=== PATIENT | male | born 1985 | race Caucasian/White ===

== ENCOUNTER 2016-06-24 00:37 | Emergency (ER) | payer SELFPAY ==
[2016-06-24 00:45] VITALS: BP 129/71
[2016-06-24] MEDS ORDERED: Alum Hydrox/Mag Hydrox/Simeth 30 ML, Lidocaine 2% 15 ML PO ONE ×2 (01:00)
--- NOTE | 2016-06-24 01:00 | EDM.PDOC ---
ED HPI GENERAL MEDICAL PROBLEM - General Chief Complaint: Chest Pain Stated Complaint: LEFT ARM PAIN AND HEART BURN Time Seen by Provider: 06/24/16 00:50 - History of Present Illness INITIAL COMMENTS - FREE TEXT/NARRATIVE: 30-year-old male presents emergency room with heartburn and chest pain. Patient's been having heartburn getting worse over the last week or so. He has some improvement with Tums. This evening about an hour ago he developed left upper chest discomfort somewhat sharp and he noticed muscle twitching in that area. Patient has no family history of coronary artery disease he does smoke at least tried to quit. Prior to the onset of this discomfort he was moving heavy stuff in the garage. His pain is not associated with any shortness of breath nausea or vomiting the pain does not radiate anywhere other than stated above. Been taking Aleve and aspirin for backache. Left Upper Chest Pain Score (Numeric/FACES): 8 - Related Data Allergies Allergy/AdvReac Type Severity Reaction Status Date / Time bee pollen Allergy Rash Verified 06/24/16 00:46 oxycodone [From OxyContin] Allergy Hives Verified 06/24/16 00:46 pineapple Allergy Swollen Verified 06/24/16 00:46 Tongue sulfer Allergy Airway Uncoded 06/24/16 00:46 Tightness Home Meds: Home Meds Omeprazole/Sodium Bicarbonate [Zegerid 40 MG] 40 mg PO DAILY #30 packet [Rx] Sucralfate [Carafate] 1 gm PO QIDACANDBED #30 tablet 06/24/16 [Rx] Social & Family History - Tobacco Use Smoking Status *Q: Current Every Day Smoker Years of Tobacco use: 16 Packs/Tins Daily: 1 - Caffeine Use Caffeine Use: Reports: Coffee, Energy drinks, Soda Other Caffeine Use: coffee daily, energy drinks 2 x/week - Recreational Drug Use Recreational Drug Use: No ED ROS GENERAL - Review of Systems Review Of Systems: See Below Constitutional: Reports: no symptoms HEENT: Reports: No symptoms Respiratory: Reports: Pleuritic Chest Pain. Denies: Shortness of Breath, Cough , Sputum Cardiovascular: Reports: Chest pain. Denies: Dyspnea on exertion, Edema, Lightheadedness, Palpitations, Syncope GI/Abdominal: Reports: No symptoms : Reports: no symptoms Neurological: Reports: No Symptoms ED EXAM, GENERAL - Physical Exam Exam: See Below Exam Limited By: No limitations General Appearance: alert, no apparent distress Ears: normal external exam, normal canal, hearing grossly normal, normal TMs Nose: normal inspection Throat/Mouth: Normal inspection, Normal lips, Normal teeth, Normal gums, Normal oropharynx, Normal voice, No airway compromise Head: atraumatic, normocephalic Respiratory/Chest: no respiratory distress, lungs clear, normal breath sounds, other (Is mild palpatory chest wall discomfort in the left upper chest) Cardiovascular: regular rate, rhythm, no edema, no murmur GI/Abdominal: normal bowel sounds, soft, other (Patient has significant epigastric discomfort with palpation otherwise no rebound guarding or rigidity) Back Exam: normal inspection, other (Has some vague discomfort in the right low back). No: CVA tenderness (L), CVA tenderness (R) Extremities: normal inspection, no pedal edema EKG INTERPRETATION EKG Date: 06/24/16 Rhythm: NSR [place]: normal P-wave: present QRS: normal ST-T: normal QT: normal Comparison: NA - no prior EKG EKG Interpretation Comments: Chest at this show some baseline wander and poor QRS complexes in aVL Course - Vital Signs Last Recorded V/S: Last Vital Signs Temp 36.6 C 06/24/16 00:43 Pulse 71 06/24/16 00:43 Resp 16 06/24/16 00:43 BP 129/71 06/24/16 00:43 Pulse Ox 97 06/24/16 00:43 - Orders/Labs/Meds Orders: Active Orders 24 hr Category Date Time Status EKG Documentation Completion [RC] STAT Care 06/24/16 01:01 Active Chest 1V Frontal [CR] Stat Exams 06/24/16 01:00 Taken Labs: Laboratory Tests 06/24/16 06/24/16 06/24/16 Range/Units 01:09 01:09 01:09 WBC 10.16 H (4.23-9.07) K/mm3 RBC 5.21 (4.63-6.08) M/mm3 Hgb 15.7 (13.7-17.5) gm/L Hct 45.3 (40.1-51.0) % MCV 86.9 (79.0-92.2) fl MCH 30.1 (25.7-32.2) pg MCHC 34.7 (32.2-35.5) g/dl RDW Std Deviation 46.7 H (35.1-43.9) fL Plt Count 258 (163-337) K/mm3 MPV 9.9 (9.4-12.3) fl Neutrophils % (Manual) 44 (40-60) % Band Neutrophils % 1 (0-10) % Lymphocytes % (Manual) 38 (20-40) % Atypical Lymphs % 0 % Monocytes % (Manual) 11 H (2-10) % Eosinophils % (Manual) 6 (0.8-7.0) % Basophils % (Manual) 0 L (0.2-1.2) Platelet Estimate Adequate RBC Morph Comment Normal PT 10.1 (8.0-13.0) SECONDS INR 0.93 APTT 29 (22-36) SECONDS Sodium 139 (136-145) mEq/L Potassium 3.8 (3.5-5.1) mEq/L Chloride 104 (98-107) mEq/L Carbon Dioxide 25 (21-32) mEq/L Anion Gap 13.8 (5-15) BUN 18 (7-18) mg/dL Creatinine 1.0 (0.7-1.3) mg/dL Est Cr Clr Drug Dosing 117.48 mL/min Estimated GFR (MDRD) > 60 (>60) mL/min BUN/Creatinine Ratio 18.0 (14-18) Glucose 95 (74-106) mg/dL Calcium 9.1 (8.5-10.1) mg/dL Magnesium 2.1 (1.8-2.4) mg/dl Total Bilirubin 0.3 (0.2-1.0) mg/dL AST 23 (15-37) U/L ALT 46 (16-63) U/L Alkaline Phosphatase 116 (46-116) U/L Troponin I < 0.017 (0.00-0.056) ng/mL Total Protein 7.3 (6.4-8.2) g/dl Albumin 4.3 (3.4-5.0) g/dl Globulin 3.0 gm/dL Albumin/Globulin Ratio 1.4 (1-2) Meds: Medications Discontinued Medications Generic Name Dose Route Start Last Admin Trade Name Freq PRN Reason Stop Dose Admin Al Hydroxide/Mg Hydroxide 30 0 ml 06/24/16 01:00 06/24/16 01:11 ml/ Lidocaine HCl 15 ml PO 06/24/16 01:01 45 ml ONETIME ONE Administration Pantoprazole Sodium 40 mg/ 100 mls @ 200 mls/hr 06/24/16 01:39 06/24/16 01:47 Sodium Chloride IV 06/24/16 02:08 200 mls/hr ONETIME ONE Administration Sucralfate 1 gm 06/24/16 02:38 06/24/16 02:42 Carafate PO 06/24/16 02:39 Not Given QIDACANDBED ONE Sucralfate 1 gm 06/24/16 02:44 06/24/16 02:44 Carafate PO 06/24/16 02:45 1 gm Q6H ONE Administration Sucralfate Confirm 06/24/16 02:42 Carafate Administered 06/24/16 02:43 Dose 1 gm .ROUTE .[facility] ONE - Re-Assessments/Exams Free Text/Narrative Re-Assessment/Exam: 06/24/16 01:39 Patient had significant improvement with the GI cocktail. We'll give protonix. Chest x-ray one view normal. 06/24/16 02:47 Patient is much better much less abdominal discomfort on repeat exam he we'll get a dose of Carafate and then discharged home. Departure - Departure Time of Disposition: 02:47 Disposition: Home, Self-Care 01 Clinical Impression: Dyspepsia, GERD (gastroesophageal reflux disease) Prescriptions: Omeprazole/Sodium Bicarbonate [Zegerid 40 MG] 40 mg PO DAILY #30 packet Sucralfate [Carafate] 1 gm PO QIDACANDBED #30 tablet Forms: ED Department Discharge Additional Instructions: Return to the emergency room with any questions or problems. Followup in the hospital clinic in one week for recheck schedule appointment tomorrow. [phone]. He then started on 2 medications the first one is zegrid. Take one daily, wall on the Carafate take it at least an hour before your evening meal. And then after the Carafate take it 30-60 minutes before your evening meal. There are 2 refills associated with this. The second medication is Carafate it's in a tablet form take one 4 times daily at the beginning of each meal breakfast lunch and supper and before bed you'll take this for a week. Discontinue the use of ibuprofen or naproxen. - My Orders Last 24 Hours: My Active Orders 06/24/16 01:00 Chest 1V Frontal [CR] Stat 06/24/16 01:01 EKG Documentation Completion [RC] STAT - Assessment/Plan Last 24 Hours: My Active Orders 06/24/16 01:00 Chest 1V Frontal [CR] Stat 06/24/16 01:01 EKG Documentation Completion [RC] STAT
[2016-06-24] MEDS ORDERED: Pantoprazole 40 MG in Sodium Chloride 0.9% 100 ML IV ONE (01:39)
[2016-06-24] MEDS ORDERED: Sucralfate 1 GM Tab PO ONE (02:38)
[2016-06-24] MEDS ORDERED: Sucralfate Suspension 1 GM/10 ML Cup ONE (02:42)
[2016-06-24] MEDS ORDERED: Sucralfate Suspension 1 GM/10 ML Cup PO ONE (02:44)
--- NOTE | 2016-06-24 07:03 | CR ---
Chest: Frontal view of the chest was obtained. Comparison: No previous chest x-ray. Heart size and mediastinum are normal. Lungs are clear. Bony structures are grossly intact. Impression: 1. Nothing acute is identified on frontal chest x-ray. Diagnostic code #1
== END 2016-06-24 03:00 | disposition home or self-care (01) ==
LOC: JD.ED 00:37
DX: K21.9 Gastro-esophageal reflux disease without esophagitis (principal); F17.200 Nicotine dependence, unspecified, uncomplicated; Z91.030 Bee allergy status; Z88.6 Allergy status to analgesic agent; Z91.018 Allergy to other foods; Z91.09 Other allergy status, other than to drugs and biological substances; Z79.899 Other long term (current) drug therapy
CPT/HCPCS: 36415; 71010; 80053; 83735; 84484; 85025; 85610; 85730; 93005; 96365; 99285; A9270; C9113; J7030; 99284

== ENCOUNTER 2018-07-21 20:44 | Emergency (ER) | payer MEDICAID ==
[2018-07-21 21:03] VITALS: BP 128/78
--- NOTE | 2018-07-21 21:20 | EDM.PDOC ---
ED HPI GENERAL MEDICAL PROBLEM - General Chief Complaint: ENT Problem Stated Complaint: SORE THROAT Time Seen by Provider: 07/21/18 21:06 Source of Information: Reports: Patient, RN Notes Reviewed - History of Present Illness INITIAL COMMENTS - FREE TEXT/NARRATIVE: 32 y/o male presents to ER with cc sore throat for the past 3 weeks. He reports the pain is better when he takes Tylenol or Ibuprofen. He denies fever or chills. He states nothing makes it better or worse. He does not have a PCP. Onset Date: 07/05/18 Onset Time: 09:00 Duration: Getting Worse, Intermittent Location: Reports: Other (sore throat) Quality: Reports: Ache Severity: Mild Improves with: Reports: Medication Worsens with: Reports: Eating Associated Symptoms: Reports: Headaches. Denies: Cough, Fever/Chills, Nausea/ Vomiting Throat Pain Score (Numeric/FACES): 6 - Related Data Allergies Allergy/AdvReac Type Severity Reaction Status Date / Time bee pollen Allergy Rash Verified 07/21/18 21:30 oxycodone [From OxyContin] Allergy Hives Verified 07/21/18 21:30 pineapple Allergy Swollen Verified 07/21/18 21:30 Tongue sulfer Allergy Airway Uncoded 07/21/18 21:30 Tightness Home Meds: Home Meds Omeprazole/Sodium Bicarbonate [Zegerid 40 MG] 40 mg PO DAILY #30 packet [Rx] Sucralfate [Carafate] 1 gm PO QIDACANDBED #30 tablet 06/24/16 [Rx] Social & Family History - Caffeine Use Caffeine Use: Reports: Coffee, Energy Drinks, Soda Other Caffeine Use: coffee daily, energy drinks 2 x/week ED ROS ENT - Review of Systems Review Of Systems: See Below Constitutional: Denies: Fever, Chills HEENT: Reports: Throat Pain Respiratory: Denies: Shortness of Breath Cardiovascular: Denies: Chest Pain Endocrine: Reports: No Symptoms GI/Abdominal: Reports: No Symptoms : Reports: No Symptoms, Urinary Retention Skin: Reports: No Symptoms Neurological: Reports: No Symptoms Psychiatric: Reports: No Symptoms Hematologic/Lymphatic: Reports: No Symptoms Immunologic: Reports: No Symptoms ED EXAM, ENT - Physical Exam Exam: See Below Exam Limited By: No Limitations General Appearance: Alert, WD/WN, No Apparent Distress Ears: Normal External Exam, Normal Canal, Hearing Grossly Normal, Normal TMs Nose: Normal Inspection, Normal Mucousa, No Blood Mouth/Throat: Normal Inspection, Normal Gums, Normal Lips, Normal Oropharynx, Normal Teeth Neck: Normal Inspection, Supple, Non-Tender, Full Range of Motion Respiratory/Chest: No Respiratory Distress, Lungs Clear, Normal Breath Sounds, No Accessory Muscle Use, Chest Non-Tender Cardiovascular: Normal Peripheral Pulses, Regular Rate, Rhythm, No Edema, No Gallop, No JVD, No Murmur, No Rub Neurological: Alert, Oriented, CN II-XII Intact, Normal Cognition, Normal Gait Psychiatric: Normal Affect, Normal Mood Skin: Warm, Dry, Intact, Normal Color, No Rash Lymphatic: No Adenopathy Course - Vital Signs Last Recorded V/S: Last Vital Signs Temp 98.7 F 07/21/18 20:59 Pulse 87 07/21/18 20:59 Resp 18 07/21/18 20:59 BP 128/78 07/21/18 20:59 Pulse Ox 97 07/21/18 20:59 - Orders/Labs/Meds Orders: Active Orders 24 hr Category Date Time Status CULTURE STREP A CONFIRMATION [RM] Stat Lab 07/21/18 21:07 Results STREP SCRN A RAPID W CULT CONF [] Stat Lab 07/21/18 21:07 Results - Re-Assessments/Exams Free Text/Narrative Re-Assessment/Exam: 07/21/18 22:22 32 y/o male presents to ER with cc sore throat for the past 3 weeks. His strep screen was negative. I will discharge home with instructions to take Tylenol or Ibuprofen for pain, to use salt water gargles. Instructed to follow up with his PCP. Instructed to return to the ER for any new or acute worsening symptoms. He verbalized understanding and is comfortable with plan for discharge. Departure - Departure Time of Disposition: 22:24 Disposition: Home, Self-Care 01 Condition: Good Clinical Impression: Pharyngitis - Discharge Information Instructions: Viral Respiratory Infection, [id number], Pharyngitis, Easy-to- Read Referrals: PCP,None [Primary Care Provider] - Forms: ED Department Discharge Additional Instructions: You have been diagnosis with viral pharyngitis. Take Tylenol or Ibuprofen for pain. Follow up with your PCP. Return to the ER for any new or acute worsening symptoms.
== END 2018-07-21 22:30 | disposition home or self-care (01) ==
LOC: JD.ED 20:44
DX: J02.9 Acute pharyngitis, unspecified (principal); Z91.018 Allergy to other foods; Z91.030 Bee allergy status; Z88.8 Allergy status to other drugs, medicaments and biological substances
CPT/HCPCS: 87081; 87430; 99282; 99283

== ENCOUNTER 2018-12-11 01:14 | Emergency (ER) | payer SELFPAY ==
[2018-12-11 01:23] VITALS: BP 117/77; PULSE 86
[2018-12-11] MEDS ORDERED: FLU Vacc QS2019-20(6MOS+)/PF 60 MCG/0.5 ML SYRINGE IM ONE (01:45)
[2018-12-11] MEDS ORDERED: Iopamidol 755 Mg/ML 100 ML Bottle IVPUSH ONE (01:51)
--- NOTE | 2018-12-11 01:51 | EDM.PDOC ---
ED HPI GENERAL MEDICAL PROBLEM - General Chief Complaint: Chest Pain Stated Complaint: chest pain Time Seen by Provider: 12/11/18 01:24 Source of Information: Reports: Patient, Family () History Limitations: Reports: No Limitations - History of Present Illness INITIAL COMMENTS - FREE TEXT/NARRATIVE: Mr. patton is a pleasant 33-year-old man with a past medical history significant only for GERD, who states that he developed left upper anterior chest pain, sharp/stabbing, and possibly burning in character, around 01:10 this morning, just after smoking a cigarette. The sensation is a pain, not a discomfort. It is intermittent and shooting. It is not present if he remains perfectly still, but is present with most movements, including turning his head, especially to the left, or with breathing. At about the same time, the patient states that he developed slight shortness of breath, any felt clammy. No associated nausea or sense of impending doom. The patient also reports having a headache felt across the top of his head, bilaterally, extending to the neck. He also reports severe left posterolateral neck pain. He denies tinnitus. The patient states that he has its frequent similar headaches and neck pain, and is usually able to resolve them by "cracking" his neck, however, his symptoms did not improve today after he entered to crack his neck several times. The patient also reports a tingling and numbness sensation to his entire left upper extremity, extending to the wrist. He states that his symptoms are worse tonight than usual. The patient does not have a PCP. Left Chest Pain Score (Numeric/FACES): 6 - Related Data Allergies Allergy/AdvReac Type Severity Reaction Status Date / Time bee pollen Allergy Rash Verified 12/11/18 01:23 oxycodone [From OxyContin] Allergy Hives Verified 12/11/18 01:23 pineapple Allergy Swollen Verified 12/11/18 01:23 Tongue sulfer Allergy Airway Uncoded 12/11/18 01:23 Tightness Home Meds: Home Meds Esomeprazole Magnesium [Nexium] 20 mg PO DAILY 12/11/18 [History] Orphenadrine [Norflex] 1 tab PO Q12H PRN #14 tab.er 12/11/18 [Rx] Ranitidine HCl [Ranitidine] 150 mg PO BID 12/11/18 [History] predniSONE [Prednisone] 1 tab PO QPM #5 tablet 12/11/18 [Rx] Past Medical History HEENT History: Reports: Impaired Vision Gastrointestinal History: Reports: GERD Psychiatric History: Reports: Anxiety (untreated), Depression (untreated) - Infectious Disease History Infectious Disease History: Reports: Chicken Pox, Measles, Mumps - Past Surgical History HEENT Surgical History: Reports: Naso-Sinus Surgery (rhinoplasty), Oral Surgery (2 wisdom teeth extracted) Musculoskeletal Surgical History: Reports: Shoulder Surgery (left, arthroscopic) , Other (See Below) (Left knee Synvisc injection) Social & Family History - Family History Family Medical History: Noncontributory - Tobacco Use Smoking Status *Q: Current Every Day Smoker Years of Tobacco use: 20 Packs/Tins Daily: 1 - Caffeine Use Caffeine Use: Reports: Coffee, Energy Drinks, Soda Other Caffeine Use: coffee daily, energy drinks 2 x/week - Alcohol Use Alcohol Use History: Yes Alcohol Use Frequency: Socially - Recreational Drug Use Recreational Drug Use: Yes Drug Use in Last 12 Months: No Recreational Drug Type: Reports: Marijuana/Hashish (last smoked at 18 years old) - Living Situation & Occupation Living situation: Reports: , with Spouse 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 ED EXAM, GENERAL - Physical Exam Exam: See Below Exam Limited By: No Limitations General Appearance: Alert, WD/WN, No Apparent Distress Eye Exam: Bilateral Eye: EOMI, Normal Inspection Ears: Normal External Exam, Normal Canal, Hearing Grossly Normal, Normal TMs Nose: Normal Inspection, Normal Mucosa, No Blood Throat/Mouth: Normal Inspection, Normal Lips, Normal Teeth, Normal Gums, Normal Oropharynx, Normal Voice, No Airway Compromise Head: Atraumatic, Normocephalic, Other (Scalp tenderness) Neck: Supple, Full Range of Motion (But pain induced in the patient's left neck and left anterior chest with turning his head to the left. No pain induced with turning his head to the right, or with flexing or extending his neck.), Tender Lateral (Substantial pain to palpation of the posterior lateral aspect of the neck), Tender Midline (relatively mild), Other (No carotid bruits). No: Lymphadenopathy (L), Lymphadenopathy (R) Respiratory/Chest: No Respiratory Distress, Lungs Clear, Normal Breath Sounds, No Accessory Muscle Use, Other (significant tenderness to palpation of the left pectoralis muscle) Cardiovascular: Normal Peripheral Pulses, Regular Rate, Rhythm, No Edema, No Gallop, No JVD, No Murmur, No Rub Peripheral Pulses: 4+: Radial (L), Radial (R) GI/Abdominal: Normal Bowel Sounds, Soft, Non-Tender, No Organomegaly, No Distention, No Abnormal Bruit, No Mass (Male) Exam: Deferred Rectal (Males) Exam: Deferred Back Exam: Normal Inspection, Full Range of Motion, NT Extremities: Normal Inspection, Normal Range of Motion, No Pedal Edema, Normal Capillary Refill Neurological: Alert, Oriented, CN II-XII Intact, Normal Cognition, Sensory/ Motor Deficit (paresthesia to the left upper extremity, shoulder to wrist) Psychiatric: Normal Affect Skin Exam: Warm, Dry, Intact, Normal Color, No Rash EKG INTERPRETATION EKG Date: 12/11/18 Time: 01:52 Rhythm: NSR Rate (Beats/Min): 71 [place]: Normal P-Wave: Present (No atrial enlargement or AV block) QRS: Normal (Normal transition) ST-T: Normal (J-point elevation in V2 only. No T-wave inversions or other ischemic changes.) QT: Normal Comparison: No Change (06/24/2016) Course - Vital Signs Last Recorded V/S: Last Vital Signs Temp 36.7 C 12/11/18 01:20 Pulse 86 12/11/18 01:20 Resp 19 12/11/18 01:20 BP 117/77 12/11/18 01:20 Pulse Ox 97 12/11/18 01:20 - Orders/Labs/Meds Orders: Active Orders 24 hr Category Date Time Status EKG Documentation Completion [RC] STAT Care 12/11/18 01:48 Active Influenza Vaccine Charge [RC] .DISCHARGE Care 12/11/18 01:30 Active Ang Head [CT] Stat Exams 12/11/18 01:46 Taken CTA Neck W & W/O Contrast [Ang Neck] [CT] Stat Exams 12/11/18 01:46 Taken Chest 1V Frontal [CR] Stat Exams 12/11/18 01:48 Taken Sodium Chloride 0.9% [Normal Saline] 1,000 ml Med 12/11/18 02:00 Active IV ASDIRECTED Sodium Chloride 0.9% [Normal Saline] 100 ml Med 12/11/18 02:00 Active IV ASDIRECTED Medication Orders Sodium Chloride (Normal Saline) 1,000 mls @ 150 mls/hr IV ASDIRECTED ELIANE Last Admin: 12/11/18 01:57 Dose: 150 mls/hr Sodium Chloride (Normal Saline) 100 mls @ 5 mls/sec IV ASDIRECTED ELIANE Last Admin: 12/11/18 02:14 Dose: 5 mls/sec Labs: Laboratory Tests 12/11/18 12/11/18 Range/Units 01:58 02:25 WBC 8.84 (4.23-9.07) K/mm3 RBC 5.23 (4.63-6.08) M/mm3 Hgb 15.8 (13.7-17.5) gm/dl Hct 46.3 (40.1-51.0) % MCV 88.5 (79.0-92.2) fl MCH 30.2 (25.7-32.2) pg MCHC 34.1 (32.2-35.5) g/dl RDW Std Deviation 48.3 H (35.1-43.9) fL Plt Count 298 (163-337) K/mm3 MPV 9.7 (9.4-12.3) fl Neut % (Auto) 43.7 (34.0-67.9) % Lymph % (Auto) 40.6 (21.8-53.1) % [place] % (Auto) 8.5 (5.3-12.2) % Eos % (Auto) 5.9 (0.8-7.0) Baso % (Auto) 1.1 (0.1-1.2) % Neut # (Auto) 3.86 (1.78-5.38) K/mm3 Lymph # (Auto) 3.59 H (1.32-3.57) K/mm3 [place] # (Auto) 0.75 (0.30-0.82) K/mm3 Eos # (Auto) 0.52 (0.04-0.54) K/mm3 Baso # (Auto) 0.10 H (0.01-0.08) K/mm3 Sodium 139 (136-145) mEq/L Potassium 3.4 L (3.5-5.1) mEq/L Chloride 104 (98-107) mEq/L Carbon Dioxide 26 (21-32) mEq/L Anion Gap 12.4 (5-15) BUN 10 (7-18) mg/dL Creatinine 1.0 (0.7-1.3) mg/dL Est Cr Clr Drug Dosing 117.63 mL/min Estimated GFR (MDRD) > 60 (>60) mL/min BUN/Creatinine Ratio 10.0 L (14-18) Glucose 107 H (74-106) mg/dL Calcium 8.3 L (8.5-10.1) mg/dL Total Bilirubin 0.1 L (0.2-1.0) mg/dL AST 17 (15-37) U/L ALT 36 (16-63) U/L Alkaline Phosphatase 135 H (46-116) U/L Troponin I < 0.017 (0.00-0.056) ng/mL Total Protein 6.3 L (6.4-8.2) g/dl Albumin 3.2 L (3.4-5.0) g/dl Globulin 3.1 gm/dL Albumin/Globulin Ratio 1.0 (1-2) Meds: Medications Generic Name Dose Route Start Last Admin Trade Name Freq PRN Reason Stop Dose Admin Sodium Chloride 1,000 mls @ 150 mls/hr 12/11/18 02:00 12/11/18 01:57 Normal Saline IV 150 mls/hr ASDIRECTED ELIANE Administration Sodium Chloride 100 mls @ 5 mls/sec 12/11/18 02:00 12/11/18 02:14 Normal Saline IV 5 mls/sec ASDIRECTED ELIANE Administration Discontinued Medications Generic Name Dose Route Start Last Admin Trade Name Freq PRN Reason Stop Dose Admin Influenza Virus Vaccine 60 mcg 12/11/18 01:45 12/11/18 02:56 Fluzone Quad [id number] Syringe IM 12/11/18 01:46 60 mcg .ONCE ONE Administration Iopamidol 100 ml 12/11/18 01:51 12/11/18 02:14 Isovue-370 (76%) IVPUSH 12/11/18 01:52 100 ml ONETIME ONE Administration Orphenadrine Citrate 100 mg 12/11/18 03:18 Norflex PO 12/11/18 03:19 ONETIME STA - Re-Assessments/Exams Free Text/Narrative Re-Assessment/Exam: 12/11/18 01:49 The patient's history and physical examination are most consistent with left cervical radiculopathy, however, cervical radiculopathy should not really cause a headache or scalp tenderness. I think there is a remote possibility that the patient is suffering from cervical cephalic dissection, especially since his symptoms began after he tried to "crack" his neck. I have therefore ordered angiograms of the head and neck. In addition, I have ordered some blood work, a chest x-ray, and an ECG. 12/11/18 02:57 Portable chest radiograph appears to be grossly normal. The cardiac silhouette is within normal limits. No pulmonary vascular congestion. No pleural effusions seen on this AP view. No focal infiltrate. No pneumothorax. Formal read per the Radiologist pending. 12/11/18 03:13 The patient's CBC is unremarkable. His CMP is remarkable for potassium slightly low at 3.4 and a blood glucose mildly elevated at 107. His calcium is mildly depressed at 8.3 with an albumin of 3.2. His alkaline phosphatase is mildly elevated either 135. The remainder of his CMP is unremarkable. His troponin is undetectably low. The patient's calcium corrects to 8.9. 12/11/18 03:19 CT angiogram of the neck is read by Vasyl as: No acute findings. No evidence for vascular dissection or aneurysm Addendum to the CT report is read as "The patient has a dominant left vertebral artery is a small right vertebral artery. No evidence for dissection" [sic] 12/11/18 03:23 CT angiogram of the head is read by Vasyl as "No acute findings." 12/11/18 03:29 Test results discussed with the patient and his . As above, the patient appears to have left cervical radiculopathy. I have ordered Norflex, and I discussed the option of him taking either an NSAID or prednisone as an anti- inflammatory. The patient would prefer prednisone; I will prescribe a 5 day course. I will also refer the patient to the clinic for follow-up, that could include an MRI of the neck for definitive diagnosis. Departure - Departure Time of Disposition: 03:32 Disposition: Home, Self-Care 01 Condition: Good Clinical Impression: Left cervical radiculopathy - Discharge Information *PRESCRIPTION DRUG MONITORING PROGRAM REVIEWED*: Not Applicable *COPY OF PRESCRIPTION DRUG MONITORING REPORT IN PATIENT EYAD: Not Applicable Referrals: Thad Mitchell MD [Physician] - Forms: ED Department Discharge Additional Instructions: You were seen in the emergency room after developing a headache, left neck pain , left chest pain, and worsening chronic tingling and numbness to your left arm. Workup in the ER included blood work, a chest x-ray, CT angiograms of your head and neck, and an ECG. Your entire workup was unremarkable. You do not have a cervicocephalic dissection. You have not suffered a heart attack. Based on your history, physical examination, and ER tests, you are most likely suffering from left cervical radiculopathy = irritation/inflammation of the nerves leaving the left side of your neck. As discussed, the definitive diagnosis of cervical radiculopathy is made by an MRI of your neck, a test that cannot be done from the emergency room. Your diagnosis is a clinical diagnosis. You have been started on the steroid prednisone and the muscle relaxant Norflex. Prescriptions for prednisone and Norflex have been sent to the [facility], located just south and across the [address] from [facility]. Take one tablet of prednisone every evening, starting this evening, Tuesday, , as prescribed. Take one tablet of Norflex every 12 hours, starting this evening, Tuesday, 2018, as prescribed. It is very important that if you take prednisone, you do not also take an NSAID , such as aspirin, ibuprofen (Advil, Motrin), or naproxen (Aleve). You may continue to take your heartburn medicines. Follow-up with Dr. Thad Kirkland, or one of the other providers in the clinic, at the next available appointment, for further evaluation. If any other problems, please do not hesitate to return to the ER. - My Orders Last 24 Hours: My Active Orders 12/11/18 01:30 Influenza Vaccine Charge [RC] .DISCHARGE 12/11/18 01:46 Ang Head [CT] Stat CTA Neck W & W/O Contrast [Ang Neck] [CT] Stat 12/11/18 01:48 EKG Documentation Completion [RC] STAT Chest 1V Frontal [CR] Stat 12/11/18 02:00 Sodium Chloride 0.9% [Normal Saline] 1,000 ml IV ASDIRECTED Sodium Chloride 0.9% [Normal Saline] 100 ml IV ASDIRECTED - Assessment/Plan Last 24 Hours: My Active Orders 12/11/18 01:30 Influenza Vaccine Charge [RC] .DISCHARGE 12/11/18 01:46 Ang Head [CT] Stat CTA Neck W & W/O Contrast [Ang Neck] [CT] Stat 12/11/18 01:48 EKG Documentation Completion [RC] STAT Chest 1V Frontal [CR] Stat 12/11/18 02:00 Sodium Chloride 0.9% [Normal Saline] 1,000 ml IV ASDIRECTED Sodium Chloride 0.9% [Normal Saline] 100 ml IV ASDIRECTED
[2018-12-11] MEDS ORDERED: Sodium Chloride 0.9% 1,000 ML IV SCH (02:00)
[2018-12-11] MEDS ORDERED: Sodium Chloride 0.9% 100 ML IV SCH (02:00)
[2018-12-11] MEDS ORDERED: Ondansetron 4 MG/2 ML SDV IVPUSH ONE (02:00)
[2018-12-11] MEDS ORDERED: Orphenadrine 100 MG Tab.ER PO STA (03:18)
[2018-12-11] MEDS ORDERED: predniSONE 20 MG Tab PO STA (03:29)
--- NOTE | 2018-12-11 06:43 | CT ---
CT angiogram of neck Technique: Multiple axial sections through the neck were obtained. Intravenous contrast was utilized. Multiple MIP images were then obtained. Findings: Small right vertebral artery is seen with dominant left vertebral artery which is a normal variant. Common carotid arteries are patent. Carotids bulbs show no focal stenosis. Internal carotid arteries appear within normal limits. No dissection or focal stenosis is seen. No occlusion is seen. Impression: 1. No abnormality is identified on CT angiogram of neck. Diagnostic code #1 I agree with preliminary report from [facility], finalized on 12/11/18, 4:16 AM Central Time
--- NOTE | 2018-12-11 06:43 | CT ---
CT angiogram of brain Technique: Multiple axial sections were obtained through the brain. Intravenous contrast was utilized. Multiple MIP images were obtained. Findings: Dominant left vertebral artery is seen as compared to the right vertebral artery. Basilar artery is patent. Carotid siphon appears normal. Middle, anterior and posterior cerebral arteries are within normal limits. No focal stenosis is seen. No gross aneurysm is identified. Impression: 1. No abnormality is appreciated on CT angiogram study centered to the [place]. Diagnostic code #1 I agree with preliminary report from [facility], finalized on 12/11/18, 4:18 AM Central Time
--- NOTE | 2018-12-11 06:43 | CR ---
Chest: Portable view of the chest was obtained. Comparison: Prior chest x-ray of 06/24/16. Heart size and mediastinum are normal. Lungs are clear. Bony structures are grossly intact. Impression: 1. Nothing acute is appreciated on portable chest x-ray. Diagnostic code #1
== END 2018-12-11 03:54 | disposition home or self-care (01) ==
LOC: JD.ED 01:14
DX: M54.12 Radiculopathy, cervical region (principal); K21.9 Gastro-esophageal reflux disease without esophagitis; F17.210 Nicotine dependence, cigarettes, uncomplicated; Z91.030 Bee allergy status; Z88.5 Allergy status to narcotic agent; Z91.018 Allergy to other foods; Z91.09 Other allergy status, other than to drugs and biological substances; Z79.899 Other long term (current) drug therapy; Z23 Encounter for immunization
CPT/HCPCS: 36415; 70496; 70498; 71045; 80053; 84484; 85025; 90471; 90686; 93005; 96360; 96361; 99285; A9270; J7030; J7040; Q9967; G0008

== ENCOUNTER 2019-09-10 01:14 | Emergency (ER) | payer OTHER ==
[2019-09-10 01:31] VITALS: BP 109/64; PULSE 85
[2019-09-10] MEDS ORDERED: Ibuprofen 600 MG Tab PO ONE (01:49)
--- NOTE | 2019-09-10 01:55 | EDM.PDOC ---
ED HPI GENERAL MEDICAL PROBLEM - General Chief Complaint: Lower Extremity Injury/Pain Stated Complaint: LEFT ANKLE FELL AND INJURIED Time Seen by Provider: 09/10/19 01:33 Source of Information: Reports: Patient, Family () History Limitations: Reports: No Limitations - History of Present Illness INITIAL COMMENTS - FREE TEXT/NARRATIVE: Mr. Claire is a very pleasant 34-year-old gentleman who now presents the ED after injuring his left ankle. He states that he was standing on a bucket around 13:30 to 14:00 today afternoon, 09/09/2019, when the bucket tipped over and he twisted his left ankle. He states that he did not initially have much pain, but that over the last few hours, it has increased significantly. He has not iced or elevated his ankle, and he did not take any [id number] or other home remedies prior to coming to the ED. Here in the ED, the patient is found to be hemodynamically stable, afebrile, saturating 96% on room air. Other than his left ankle injury, the patient denies recent fever, chills, sore throat, ear pain, nasal or sinus congestion, cough, dyspnea, chest pain, palpitations, nausea, vomiting, constipation, diarrhea, abdominal pain, urinary symptoms, recent weight gain or weight loss, recent bloody bowel movements or black bowel movements, recent joint aches, headaches, or rashes. The patient does not have a PCP. Left Ankle Pain Score (Numeric/FACES): 10 - Related Data Allergies Allergy/AdvReac Type Severity Reaction Status Date / Time bee pollen Allergy Rash Verified 09/10/19 01:24 oxycodone [From OxyContin] Allergy Hives Verified 09/10/19 01:24 pineapple Allergy Swollen Verified 09/10/19 01:24 Tongue sulfer Allergy Airway Uncoded 09/10/19 01:24 Tightness Home Meds: Home Meds . [No Known Home Meds] 09/10/19 [History] Past Medical History HEENT History: Reports: Impaired Vision (wears glasses) Gastrointestinal History: Reports: GERD Psychiatric History: Reports: Anxiety (untreated), Depression (untreated) Endocrine/Metabolic History: Reports: Obesity/BMI 30+ - Past Surgical History HEENT Surgical History: Reports: Naso-Sinus Surgery (rhinoplasty), Oral Surgery (2 wisdom teeth extracted) Musculoskeletal Surgical History: Reports: Shoulder Surgery (left, arthroscopic), Other (See Below) (Left knee Synvisc injection) Social & Family History - Family History Family Medical History: Noncontributory - Tobacco Use Smoking Status *Q: Current Every Day Smoker Years of Tobacco use: 20 Packs/Tins Daily: 1 - Caffeine Use Caffeine Use: Reports: Coffee, Energy Drinks, Soda Other Caffeine Use: coffee daily, energy drinks 2 x/week - Alcohol Use Alcohol Use History: Yes Alcohol Use Frequency: Socially - Recreational Drug Use Recreational Drug Use: Yes Drug Use in Last 12 Months: No Recreational Drug Type: Reports: Marijuana/Hashish (last smoked when 18 yrs old) - Living Situation & Occupation Living situation: Reports: , with Spouse 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 ED EXAM, GENERAL - Physical Exam Exam: See Below Exam Limited By: No Limitations General Appearance: Alert, WD/WN, No Apparent Distress Peripheral Pulses: 3+: Posterior Tibial (L), Posterior Tibial (R), Dorsalis Pedis (L), Dorsalis Pedis (R) Extremities: Other (There is very mild swelling without ecchymosis or erythema to the left lateral malleolus. This area is tender to palpation. No inward deviation of the foot. Neurovascular status of the left lower extremity is intact.) Course - Vital Signs Last Recorded V/S: Last Vital Signs Temp 36.3 C 09/10/19 01:22 Pulse 85 09/10/19 01:22 Resp 16 09/10/19 01:22 BP 109/64 09/10/19 01:22 Pulse Ox 96 09/10/19 01:22 - Orders/Labs/Meds Orders: Active Orders 24 hr Category Date Time Status Ankle Min 3V Lt [CR] Stat Exams 09/10/19 01:49 Taken DME for Discharge [COMM] Stat Oth 09/10/19 02:21 Ordered Meds: Medications Discontinued Medications Generic Name Dose Route Start Last Admin Trade Name Freq PRN Reason Stop Dose Admin Ibuprofen 600 mg 09/10/19 01:49 09/10/19 02:06 Motrin PO 09/10/19 01:50 600 mg ONETIME ONE Administration - Re-Assessments/Exams Free Text/Narrative Re-Assessment/Exam: 09/10/19 01:49 As above, the patient twisted his left ankle when he fell off a bucket that he was standing on around 12 hours ago. He is complaining of lateral pain and tenderness, although there is minimal soft tissue swelling and no ecchymosis to the area. My suspicion for fracture is very low, however, I have ordered x-rays of the ankle to be sure. In the meantime, I got the patient an ice pack, and have ordered ibuprofen. 09/10/19 02:20 4-view radiographs of the left ankle appear to be grossly normal. No fracture or dislocation identified. The ankle mortise is preserved. Formal read per the Radiologist pending. Based on the above, I will order a stirrup splint. 09/10/19 02:23 X-ray results discussed with the patient and his . As above, the patient will be fitted with a stirrup splint. I would like him to wear it for about a week to 10 days, after which he can come out of it and ambulate as tolerated. He will likely still have some discomfort, however, if he is continuing to have pain beyond 2 weeks, he should follow-up with an Orthopedic Surgeon. He should ice and elevate his left ankle as much as possible for the next 2 days to help minimize swelling, and I recommended that he take an NSAID for discomfort; he prefers to take [employer], which contains aspirin and caffeine. Departure - Departure Time of Disposition: 02:25 Disposition: Home, Self-Care 01 Condition: Good Clinical Impression: Left ankle sprain - Discharge Information *PRESCRIPTION DRUG MONITORING PROGRAM REVIEWED*: Not Applicable *COPY OF PRESCRIPTION DRUG MONITORING REPORT IN PATIENT EYAD: Not Applicable Instructions: Ankle Sprain, [id number] Referrals: PCP,None [Primary Care Provider] - Wing Pretty MD [Physician] - Forms: ED Department Discharge Additional Instructions: You were seen in the emergency room after twisting your left ankle yesterday afternoon. Work-up in the ER included x-rays of your left ankle, which returned normal. No broken bones or dislocations were seen. Based on your history, physical exam, and ER x-rays, you have most likely sprained your left ankle. We recommend that you ice and elevate your left ankle as much as possible over the next 2 days, to help minimize swelling. We recommend that you take an [id number] NSAID for discomfort; you prefer [employer]. We recommend that you take this with food, to help minimize stomach upset. You have been fitted with a stirrup splint. Apply this each morning, and remove at bedtime. We recommend that you wear it for the next 7 to 10 days, after which we recommend that you stop using it and ambulate as tolerated, even though you will still likely have some ankle discomfort. If you continue to have ankle pain after 2 weeks, we recommend that you follow- up with the Orthopedic Surgeon Dr. Wing Pretty for reevaluation. If any other problems, please do not hesitate to return to the ER. Sepsis Event Note (ED) - Evaluation Sepsis Screening Result: No Definite Risk - Focused Exam Vital Signs: Vital Signs Temp Pulse Resp BP Pulse Ox 09/10/19 01:22 36.3 C 85 16 109/64 96 - My Orders Last 24 Hours: My Active Orders 09/10/19 01:49 Ankle Min 3V Lt [CR] Stat 09/10/19 02:21 DME for Discharge [COMM] Stat - Assessment/Plan Last 24 Hours: My Active Orders 09/10/19 01:49 Ankle Min 3V Lt [CR] Stat 09/10/19 02:21 DME for Discharge [COMM] Stat
--- NOTE | 2019-09-10 06:18 | CR ---
Left ankle: 4 views left ankle were obtained. Comparison: Prior left ankle study of 04/17/10. Ankle mortise is symmetric. No acute fracture, dislocation or other bony abnormality is appreciated. Impression: 1. No abnormality is identified on right ankle exam. Diagnostic code #1 This report was dictated in MDT
== END 2019-09-10 02:44 | disposition home or self-care (01) ==
LOC: JD.ED 01:14
DX: S93.402A Sprain of unspecified ligament of left ankle, initial encounter (principal); E66.9 Obesity, unspecified; F17.210 Nicotine dependence, cigarettes, uncomplicated; Z88.8 Allergy status to other drugs, medicaments and biological substances; Z91.018 Allergy to other foods; Z68.32 Body mass index [BMI] 32.0-32.9, adult; W18.40XA Slipping, tripping and stumbling without falling, unspecified, initial encounter
CPT/HCPCS: 29515; 73610; 99283; A9270; 99282

== ENCOUNTER 2019-09-13 22:16 | Emergency (ER) | payer OTHER ==
[2019-09-13 22:34] VITALS: BP 129/90; PULSE 83
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
--- NOTE | 2019-09-14 06:26 | CR ---
Left hand: 4 views left hand were obtained. Comparison: No previous hand exam. Fracture is identified within the distal left 5th metacarpal. Fracture shows mild apex posterior angulation. Soft tissue swelling is also noted. Old avulsion fracture is noted off the corner base of the proximal phalanx of the 3rd digit. No additional bony abnormality is appreciated. Impression: 1. Mildly angulated distal left 5th metacarpal fracture with soft tissue swelling. 2. Old avulsion injury as noted above. Diagnostic code #3 This report was dictated in MDT
== END 2019-09-13 23:23 | disposition home or self-care (01) ==
LOC: JD.ED 22:16
DX: S62.367A Nondisplaced fracture of neck of fifth metacarpal bone, left hand, initial encounter for closed fracture (principal); E66.9 Obesity, unspecified; Z91.018 Allergy to other foods; Z88.5 Allergy status to narcotic agent; Z91.030 Bee allergy status; Z88.8 Allergy status to other drugs, medicaments and biological substances; Z68.23 Body mass index [BMI] 23.0-23.9, adult; W22.8XXA Striking against or struck by other objects, initial encounter
CPT/HCPCS: 29125; 73130-26-LT; 73130-LT; 99282; 99283-25

== ENCOUNTER 2020-04-16 07:26 | Emergency (ER) | payer OTHER ==
[2020-04-16 07:41] VITALS: BP 123/84; PULSE 80
[2020-04-16] MEDS ORDERED: cefTRIAXone 2 GM in Sodium Chloride 0.9% 100 ML IV ONE (07:43)
[2020-04-16] MEDS ORDERED: HYDROmorphone 1 MG/ML Syringe IVPUSH ONE (07:43)
[2020-04-16] MEDS ORDERED: Doxycycline 100 MG Cap PO ONE (07:44)
[2020-04-16] MEDS ORDERED: Ketorolac 30 MG/ML SDV IVPUSH SCH (07:45)
--- NOTE | 2020-04-16 07:45 | EDM.PDOC ---
ED HPI GENERAL MEDICAL PROBLEM - General Chief Complaint: Skin Complaint Stated Complaint: SKIN COMPLAINT/HEADACHE Time Seen by Provider: 04/16/20 07:38 Source of Information: Reports: Patient History Limitations: Reports: No Limitations - History of Present Illness INITIAL COMMENTS - FREE TEXT/NARRATIVE: 34-year-old male presents to the ED with a painful skin lesion left mid forehead that started about 4 days ago. He believes was from wearing a hat that was too tight but does not recollect necessarily being poked or abraded in this area. Over the last 3 to 4 days the area has increased in size and now involves the entire left hemiforehead left temporal scalp left lateral face including the anterior axillary node and left submandibular node. Pain is constant throbbing and pulsating. It does not cross the midline. There is only a singular lesion in this place. There is no evidence of shingles. Patient reports that he can even touch his scalp due to the severity of the pain indicating cellulitis under the skin. Onset: Gradual Onset Date: 04/13/20 Duration: Day(s):, Constant, Getting Worse Location: Reports: Head (Lesion left anterior upper forehead at the hairline, swollen erythematous nodule with surrounding cellulitis) Quality: Reports: Ache, Throbbing, Other Severity: Severe (Pulsating he did attend) Improves with: Reports: Rest Worsens with: Reports: Other Context: Denies: Activity (Worse if you touch it.), Exercise, Lifting, Sick Contact, Trauma, Other Associated Symptoms: Reports: Loss of Appetite, Weakness. Denies: No Other Symptoms, Confusion, Chest Pain, Cough, cough w sputum, Diaphoresis, Fever/Chills, Headaches, Malaise, Rash (Mild), Seizure, Shortness of Breath, Syncope Treatments NURSE PLASTICS: Reports: Other (see below) (9.) face Pain Score (Numeric/FACES): 10 - Related Data Allergies Allergy/AdvReac Type Severity Reaction Status Date / Time bee pollen Allergy Severe Rash Verified 09/13/19 22:26 oxycodone [From OxyContin] Allergy Severe Hives Verified 09/13/19 22:26 pineapple Allergy Severe Swollen Verified 09/13/19 22:26 Tongue sulfer Allergy Severe Airway Uncoded 09/13/19 22:26 Tightness Home Meds: Home Meds Doxycycline [Vibra-Tabs] 100 mg PO Q12HR #20 tab 04/16/20 [Rx] Past Medical History - Past Health History Medical/Surgical History: Denies Medical/Surgical History HEENT History: Reports: Impaired Vision Cardiovascular History: Reports: None Respiratory History: Reports: None Gastrointestinal History: Reports: GERD Genitourinary History: Reports: None Neurological History: Reports: Concussion Psychiatric History: Reports: ADHD, Anxiety, Depression Endocrine/Metabolic History: Reports: Obesity/BMI 30+ Hematologic History: Reports: None Immunologic History: Reports: None Oncologic (Cancer) History: Reports: None Dermatologic History: Reports: None - Infectious Disease History Infectious Disease History: Reports: None - Past Surgical History HEENT Surgical History: Reports: Naso-Sinus Surgery, Oral Surgery Musculoskeletal Surgical History: Reports: Shoulder Surgery, Other (See Below) Social & Family History - Family History Family Medical History: No Pertinent Family History - Caffeine Use Caffeine Use: Reports: Tea Other Caffeine Use: coffee daily, energy drinks 2 x/week - Living Situation & Occupation Living situation: Reports: , with Spouse 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) ED ROS GENERAL - Review of Systems Review Of Systems: See Below Constitutional: Denies: Fever, Chills, Malaise, Weakness, Fatigue, Decreased Appetite, Weight Loss HEENT: Reports: No Symptoms Respiratory: Reports: No Symptoms Cardiovascular: Reports: No Symptoms Endocrine: Reports: No Symptoms GI/Abdominal: Reports: No Symptoms : Reports: No Symptoms Musculoskeletal: Reports: Neck Pain, Back Pain Skin: Reports: Other (Patient has a primary 1 cm erythematous nodule left upper forehead which appears to be the nidus for infection of a developing cellulitis left hemiscalp involving the frontal temporal and parietal scalp on the left side. Recognizes some pain and swelling over the anterior left lymph node anterior to the ear. Some pain also in the submandibular gland left side. Mild pain posterior to the left ear. There are no open wounds or draining wounds.) Neurological: Reports: Headache Psychiatric: Reports: No Symptoms (Pressure on the scalp which she reports is a headache.) Hematologic/Lymphatic: Reports: No Symptoms Immunologic: Reports: No Symptoms ED EXAM, SKIN/RASH Exam: See Below Exam Limited By: No Limitations General Appearance: Alert, WD/WN, Anxious, Mild Distress, Other (Erythematous 1 cm round nodule left upper forehead or adjacent to the hairline which is very tender to palpation. It is not pointing. Not fluctuant. Vital signs show temperature of 36.5. Heart rate is 80 and sinus respiratory is 18 with O2 sats of 97% room air BP 123/84.) Eye Exam: Bilateral Eye: Normal Inspection, PERRL Ears: Normal External Exam, Normal TMs Throat/Mouth: Normal Inspection, Normal Lips, Normal Oropharynx Head: Atraumatic, Normocephalic, Other (Scalp tenderness left hemiscalp involving the frontal temporal parietal aspects of the scalp and then the left side of his face adjacent to the anterior left ear and posterior to the left ear) Neck: Normal Inspection ( with the scalp being very tender to palpation sugges ting an underlying severe cellulitis developing.), Supple, Non-Tender, Full Range of Motion. No: Lymphadenopathy (L), Lymphadenopathy (R) Respiratory/Chest: No Respiratory Distress, Lungs Clear, Normal Breath Sounds, No Accessory Muscle Use Cardiovascular: Normal Peripheral Pulses, Regular Rate, Rhythm, No Edema, No Gallop, No Murmur, No Rub Back Exam: Normal Inspection, Full Range of Motion. No: CVA Tenderness (L), CVA Tenderness (R) Extremities: Normal Inspection, Normal Range of Motion, Non-Tender Neurological: Alert, Oriented, CN II-XII Intact, Normal Cognition, Normal Gait Psychiatric: Anxious, Other (Patient feels he needs a CT scan of his head to delineate what is going on.) Skin: Warm, Dry, Intact, Normal Color, Erythema (Thematous nodule left upper forehead adjacent to the anterior hairline which is infected. Is not pointing or fluctuant. It appears to be the nidus for developing cellulitis of the left hemiscalp causing current pain syndrome), Increased Warmth Location, Skin: Head (Left hemiscalp involving the left forehead left temporal frontal and parietal scalp left side. Of note it does not cross the midline. Feels some pain anterior to his left ear and posterior to his left ear with mild left anterior axillary lymphadenopathy.) Characteristics: Maculopapular, Erythematous Associated features: Warmth, Tenderness, Swelling, Inflammation Course - Vital Signs Last Recorded V/S: Last Vital Signs Temp 36.5 C 04/16/20 07:38 Pulse 80 04/16/20 07:38 Resp 18 04/16/20 07:38 BP 123/84 04/16/20 07:38 Pulse Ox 97 04/16/20 07:38 - Orders/Labs/Meds Orders: Active Orders 24 hr Category Date Time Status Ketorolac [Toradol] Med 04/16/20 07:45 Active 30 mg IVPUSH ONETIME Medication Orders Ketorolac Tromethamine (Toradol) 30 mg IVPUSH ONETIME ELIANE Last Admin: 04/16/20 07:53 Dose: 30 mg Documented by: HERMNOE Labs: Laboratory Tests 04/16/20 04/16/20 Range/Units 07:52 07:52 WBC 10.58 H (4.23-9.07) K/mm3 RBC 5.41 (4.63-6.08) M/mm3 Hgb 16.0 (13.7-17.5) gm/dl Hct 47.4 (40.1-51.0) % MCV 87.6 (79.0-92.2) fl MCH 29.6 (25.7-32.2) pg MCHC 33.8 (32.2-35.5) g/dl RDW Std Deviation 47.5 H (35.1-43.9) fL Plt Count 309 (163-337) K/mm3 MPV 9.2 L (9.4-12.3) fl Neut % (Auto) 64.2 (34.0-67.9) % Lymph % (Auto) 22.1 (21.8-53.1) % [place] % (Auto) 8.5 (5.3-12.2) % Eos % (Auto) 4.4 (0.8-7.0) Baso % (Auto) 0.7 (0.1-1.2) % Neut # (Auto) 6.79 H (1.78-5.38) K/mm3 Lymph # (Auto) 2.34 (1.32-3.57) K/mm3 [place] # (Auto) 0.90 H (0.30-0.82) K/mm3 Eos # (Auto) 0.47 (0.04-0.54) K/mm3 Baso # (Auto) 0.07 (0.01-0.08) K/mm3 C-Reactive Protein 0.4 (<1.0) mg/dL Meds: Medications Generic Name Dose Route Start Last Admin Trade Name Freq PRN Reason Stop Dose Admin Ketorolac Tromethamine 30 mg 04/16/20 07:45 04/16/20 07:53 Toradol IVPUSH 30 mg ONETIME ELIANE Administration Discontinued Medications Generic Name Dose Route Start Last Admin Trade Name Freq PRN Reason Stop Dose Admin Doxycycline Hyclate 200 mg 04/16/20 07:44 04/16/20 07:55 Vibramycin PO 04/16/20 07:45 200 mg ONETIME ONE Administration Doxycycline Hyclate Confirm 04/16/20 07:48 04/16/20 08:01 Vibramycin Administered 04/16/20 07:49 Not Given Dose 100 mg .ROUTE .STK-MED ONE Hydromorphone HCl 1 mg 04/16/20 07:43 04/16/20 07:54 Dilaudid IVPUSH 04/16/20 07:44 1 mg ONETIME ONE Administration Ceftriaxone Sodium 2 gm/ 100 mls @ 200 mls/hr 04/16/20 07:43 04/16/20 07:55 Sodium Chloride IV 04/16/20 08:12 200 mls/hr ONETIME ONE Administration - Radiology Interpretation Free Text/Narrative:: 34-year-old male presents to the ED with a painful erythematous lesion left upper forehead anterior hairline. He reports its been there for about 4 days and is gradually increasing in size. This morning he developed generalized tenderness of the entire left forehead left temporal frontal and parietal scalp rating down along his left hemiface towards his left ear. There is mild left anterior ear axillary adenopathy and mild submandibular adenopathy on the left side. The posterior ear lymph node is minimally enlarged or swollen. Plan Rocephin 2 g IV. Doxycycline 200 mg per ora. CBC and CRP to be obtained. Departure - Departure Time of Disposition: 08:26 Disposition: Home, Self-Care 01 Condition: Fair Clinical Impression: Infected sebaceous cyst of skin, Cellulitis of head or scalp - Discharge Information *PRESCRIPTION DRUG MONITORING PROGRAM REVIEWED*: No *COPY OF PRESCRIPTION DRUG MONITORING REPORT IN PATIENT EYAD: No Prescriptions: Doxycycline [Vibra-Tabs] 100 mg PO Q12HR #20 tab Instructions: Epidermal Cyst, [id number], Cellulitis, Adult, Rusn-[id number] Forms: ED Department Discharge Additional Instructions: Evaluation in the emergency room today in regard to an infected sebaceous or epidermal cyst left upper forehead near the hairline. This lesion developed 3 to 4 days ago and is expanding in size. There is enough pus or fluctuation the lesion to open and drain it. You appreciate diffuse pain throughout the left hemiscalp from left temporal frontal and parietal scalp as well as the left side of your face toward your ear. This is due to developing infection under the skin called cellulitis from the primary skin wound. Epidermal cyst or infected sebaceous cyst requires antibiotic treatment. You were started on Rocephin 2 g intravenously in the emergency room and oral doxycycline 200 mg by mouth. You will need to continue doxycycline 100 mg twice daily for the next 10 days with the next tablet due tonight before bed. Continue Motrin 600 mg every 6 hours as necessary to relieve pain and inflammation scalp. Expect marked improvement over the next 24 to 36 hours. Sepsis Event Note (ED) - Focused Exam Vital Signs: Vital Signs Temp Pulse Resp BP Pulse Ox 04/16/20 07:38 36.5 C 80 18 123/84 97 - My Orders Last 24 Hours: My Active Orders 04/16/20 07:45 Ketorolac [Toradol] 30 mg IVPUSH ONETIME - Assessment/Plan Last 24 Hours: My Active Orders 04/16/20 07:45 Ketorolac [Toradol] 30 mg IVPUSH ONETIME
[2020-04-16] MEDS ORDERED: Doxycycline 100 MG Cap ONE (07:48)
== END 2020-04-16 08:40 | disposition home or self-care (01) ==
LOC: JD.ED 07:26
DX: L03.811 Cellulitis of head [any part, except face] (principal); L72.3 Sebaceous cyst; E66.9 Obesity, unspecified; Z68.28 Body mass index [BMI] 28.0-28.9, adult; Z91.030 Bee allergy status; Z88.5 Allergy status to narcotic agent; Z91.018 Allergy to other foods; Z88.2 Allergy status to sulfonamides
CPT/HCPCS: 36415; 85025; 86140; 96365; 96375; 99283; A9270; J0696; J1170; J1885; 99284

== ENCOUNTER 2020-10-18 00:18 | Emergency (ER) | payer SELFPAY ==
[2020-10-18 00:33] VITALS: BP 131/83; PULSE 82
--- NOTE | 2020-10-18 01:24 | EDM.PDOC ---
ED HPI GENERAL MEDICAL PROBLEM - General Chief Complaint: ENT Problem Stated Complaint: SWALLOWED FB Time Seen by Provider: 10/18/20 01:03 - History of Present Illness INITIAL COMMENTS - FREE TEXT/NARRATIVE: Patient arrived to ED by private vehicle Complains of discomfort to the right side of the throat/upper neck States it feels like something is caught in the throat Symptoms began about [id number] yesterday afternoon, then resolved Had recurrence of symptoms around midnight, prompting his visit to ED for evaluation He voices concern about possible foil fragment in the throat States he ate a candy bar about [id number] yesterday He thinks that he removed all of the nip wrapper before eating the candy, and did not experience any foreign body sensation immediately afterward He had no difficulty eating, drinking, and swallowing with dinner last night Throat Pain Score (Numeric/FACES): 2 - Related Data Allergies Allergy/AdvReac Type Severity Reaction Status Date / Time bee pollen Allergy Severe Rash Verified 10/18/20 00:33 oxycodone [From OxyContin] Allergy Severe Hives Verified 10/18/20 00:33 pineapple Allergy Severe Swollen Verified 10/18/20 00:33 Tongue sulfer Allergy Severe Airway Uncoded 10/18/20 00:33 Tightness Home Meds: Home Meds Doxycycline [Vibra-Tabs] 100 mg PO Q12HR #20 tab 04/16/20 [Rx] Past Medical History - Past Health History Medical/Surgical History: Denies Medical/Surgical History HEENT History: Reports: Impaired Vision Cardiovascular History: Reports: None Respiratory History: Reports: None Gastrointestinal History: Reports: GERD Genitourinary History: Reports: None Neurological History: Reports: Concussion Psychiatric History: Reports: ADHD, Anxiety, Depression Endocrine/Metabolic History: Reports: Obesity/BMI 30+ Hematologic History: Reports: None Immunologic History: Reports: None Oncologic (Cancer) History: Reports: None Dermatologic History: Reports: None - Infectious Disease History Infectious Disease History: Reports: None - Past Surgical History HEENT Surgical History: Reports: Naso-Sinus Surgery, Oral Surgery Other HEENT Surgeries/Procedures: nose surgery Musculoskeletal Surgical History: Reports: Shoulder Surgery, Other (See Below) Other Musculoskeletal Surgeries/Procedures:: Knee Surgery Social & Family History - Family History Family Medical History: No Pertinent Family History - Tobacco Use Tobacco Use Status *Q: Current Every Day Tobacco User Years of Tobacco use: 20 Packs/Tins Daily: 1 - Caffeine Use Caffeine Use: Reports: Tea Other Caffeine Use: coffee daily, energy drinks 2 x/week - Recreational Drug Use Recreational Drug Use: No - Living Situation & Occupation Living situation: Reports: , with Spouse 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) ED ROS GENERAL - Review of Systems Review Of Systems: See Below Free Text/Narrative/Comment: Constitutional - no fever; no anorexia Eyes - no eye pain; no visual disturbance ENT - no rhinorrhea; no congestion; no epistaxis; throat pain; questionable foreign body sensation; no dysgeusia Cardiovascular - no chest pain Respiratory - no shortness of breath; no cough Gastrointestinal - no abdominal pain; no nausea; no vomiting; no diarrhea Genitourinary - no dysuria Musculoskeletal - no neck pain; no back pain; no extremity injury; no myalgia Neurological - no headache; no speech disturbance; no weakness ED EXAM, GENERAL - Physical Exam Exam: See Below Free Text/Narrative:: Constitutional - awake; alert; no acute distress Head - no facial swelling or weakness Eyes - extra ocular motion intact; conjunctiva normal; pupils equal and reactive to light ENT - no nasal deformity; no epistaxis; normal phonation; mucus membranes moist; Neck - no swelling Respiratory - normal respiratory effort; no crackles or wheezing; no stridor Cardiovascular - regular rhythm; normal rate; S1; S2; grade 1/6 systolic murmur GI/Abdomen - normal bowel sounds; soft; no tenderness; no rebound; no guarding; no mass Musculoskeletal - grossly normal strength and motion; no swelling or deformity Skin - warm; dry Neurologic - normal speech; no weakness; gait intact Psychiatric - normal mood and affect; memory and attention normal Course - Vital Signs Text/Narrative:: Considered etiologies included: neck pain, throat pain, pharyngitis, foreign body Symptoms and examination were discussed No specific treatment or intervention was required at initial evaluation by typewriter assembler Investigations were initiated Patient refused COVID-19 testing Results were unremarkable Symptomatic treatment was discussed Primary care and/or ENT follow-up was advised Patient was felt to be stable for outpatient follow-up Return precautions were provided Last Recorded V/S: Last Vital Signs Temp 36.4 C 10/18/20 00:31 Pulse 82 10/18/20 00:31 Resp 16 10/18/20 00:31 BP 131/83 10/18/20 00:31 Pulse Ox 98 10/18/20 00:31 - Orders/Labs/Meds Labs: Laboratory Tests 10/18/20 Range/Units 01:25 Group A Strep (PCR) Not detected (NOT DETECT) - Radiology Interpretation Free Text/Narrative:: XR neck, soft tissues, interpreted by typewriter assembler: no soft tissue abnormality, no radio-opaque FB Departure - Departure Time of Disposition: 02:31 Disposition: Home, Self-Care 01 Clinical Impression: Throat discomfort - Discharge Information *PRESCRIPTION DRUG MONITORING PROGRAM REVIEWED*: Not Applicable *COPY OF PRESCRIPTION DRUG MONITORING REPORT IN PATIENT EYAD: Not Applicable Instructions: Sore Throat Referrals: PCP,None [Primary Care Provider] - Forms: ED Department Discharge Additional Instructions: Return if condition worsens May resume general activity and regular diet as tolerated Continue usual medications Follow-up with primary care and/or ENT provider is recommended in 3 to 5 days Call [facility] ([phone]) or [facility] ([phone]) for ENT provider information Sepsis Event Note (ED) - Evaluation Sepsis Screening Result: No Definite Risk
--- NOTE | 2020-10-18 08:59 | CR ---
Soft tissue neck: AP and lateral views of the neck were obtained. Study was obtained as a soft tissue exam. Comparison: No previous soft tissue neck study is available. Vertebral body heights and disc spaces are maintained within the cervical spine. Prevertebral soft tissues are normal. Epiglottis is normal. Laryngeal calcifications are noted. No discrete fracture or definite acute radiopaque foreign body is seen. Impression: 1. No definite soft tissue abnormality is appreciated on 2 view soft tissue neck exam. Note: Please correlate if patient's symptoms warrant further evaluation by CT exam. Diagnostic code #1
== END 2020-10-18 02:44 | disposition home or self-care (01) ==
LOC: JD.ED 00:18
DX: R07.0 Pain in throat (principal); E66.9 Obesity, unspecified; Z68.30 Body mass index [BMI] 30.0-30.9, adult; Z72.0 Tobacco use; Z91.030 Bee allergy status; Z88.5 Allergy status to narcotic agent; Z91.048 Other nonmedicinal substance allergy status; Z91.018 Allergy to other foods
CPT/HCPCS: 70360; 70360-26; 87651-QW; 99282; 99283-25

== ENCOUNTER 2020-11-04 07:07 | Emergency (ER) | payer SELFPAY ==
[2020-11-04 07:17] VITALS: BP 116/69; PULSE 67
[2020-11-04] MEDS ORDERED: predniSONE 20 MG Tab PO ONE (07:31)
--- NOTE | 2020-11-04 07:35 | EDM.PDOC ---
ED HPI GENERAL MEDICAL PROBLEM - General Chief Complaint: Allergic Reaction Stated Complaint: BEE STING Time Seen by Provider: 11/04/20 07:20 Source of Information: Reports: Patient History Limitations: Reports: No Limitations - History of Present Illness INITIAL COMMENTS - FREE TEXT/NARRATIVE: 35-year-old male presents to the ED with a wasp sting to the dorsal aspect of his left hand that occurred yesterday p.m. He has localized swelling over the dorsal aspect of his left hand with persistent itching and burning. He did take 75 mg of Benadryl after it happened yesterday. He did not take Motrin or ice the area. He had no signs of systemic illness from the wasp sting. Onset: Sudden Onset Date: 11/03/20 Onset Time: 15:00 Duration: Hour(s):, Constant Location: Reports: Upper Extremity, Left (Localized swelling to the dorsal aspect of left hand. Wasp sting radial aspect of the dorsal hand between the thumb and index finger.) Quality: Reports: Other (Itching) Severity: Moderate Improves with: Reports: None Worsens with: Reports: None Context: Reports: Other (Wasp sting). Denies: Activity, Exercise, Lifting, Sick Contact, Trauma Associated Symptoms: Reports: No Other Symptoms. Denies: Confusion, Chest Pain, Cough, cough w sputum, Fever/Chills, Headaches, Loss of Appetite, Malaise, Rash, Seizure, Shortness of Breath, Syncope Treatments [employer]: Reports: Other (see below) (He took Benadryl 50 mg by mouth once yesterday afternoon.) - Related Data Allergies Allergy/AdvReac Type Severity Reaction Status Date / Time bee pollen Allergy Severe Rash Verified 11/04/20 07:17 oxycodone [From OxyContin] Allergy Severe Hives Verified 11/04/20 07:17 pineapple Allergy Severe Swollen Verified 11/04/20 07:17 Tongue sulfer Allergy Severe Airway Uncoded 11/04/20 07:17 Tightness Home Meds: Home Meds Esomeprazole [NexIUM] 0 mg PO DAILY PRN 11/04/20 [History] Past Medical History - Past Health History Medical/Surgical History: Denies Medical/Surgical History HEENT History: Reports: Impaired Vision Cardiovascular History: Reports: None Respiratory History: Reports: None Gastrointestinal History: Reports: GERD Genitourinary History: Reports: None Neurological History: Reports: Concussion Psychiatric History: Reports: ADHD, Anxiety, Depression Endocrine/Metabolic History: Reports: Obesity/BMI 30+ Hematologic History: Reports: None Immunologic History: Reports: None Oncologic (Cancer) History: Reports: None Dermatologic History: Reports: None - Infectious Disease History Infectious Disease History: Reports: None - Past Surgical History HEENT Surgical History: Reports: Naso-Sinus Surgery, Oral Surgery Other HEENT Surgeries/Procedures: nose surgery Musculoskeletal Surgical History: Reports: Shoulder Surgery, Other (See Below) Other Musculoskeletal Surgeries/Procedures:: Knee Surgery Social & Family History - Family History Family Medical History: No Pertinent Family History - Tobacco Use Tobacco Use Status *Q: Current Every Day Tobacco User Years of Tobacco use: 20 Packs/Tins Daily: 1 - Caffeine Use Caffeine Use: Reports: Coffee, Energy Drinks, Tea Other Caffeine Use: coffee daily, energy drinks 2 x/week - Recreational Drug Use Recreational Drug Use: No - Living Situation & Occupation Living situation: Reports: , with Spouse 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[employer]) ED ROS ALLERGIC REACTION - Review of Systems Review Of Systems: See Below Constitutional: Denies: Fever, Chills, Malaise, Weakness, Fatigue HEENT: Reports: Glasses Respiratory: Reports: No Symptoms Cardiovascular: Reports: No Symptoms Endocrine: Reports: No Symptoms GI/Abdominal: Reports: Other (GERD well-controlled with proton pump inhibitor) : Reports: No Symptoms Musculoskeletal: Reports: Back Pain (Occasional problems with low back discomfort) Skin: Reports: No Symptoms Neurological: Reports: No Symptoms Psychiatric: Reports: No Symptoms Hematologic/Lymphatic: Reports: No Symptoms Immunologic: Reports: No Symptoms ED EXAM GENERAL NO PERIP PULSE - Physical Exam Exam: See Below Exam Limited By: No Limitations General Appearance: Alert, WD/WN, No Apparent Distress, Other (Temperature is 35.9 degrees heart rate 67 in sinus respiratory to 16 with O2 sats of 96% room air. BP is 116/69) Eye Exam: Bilateral Eye: Normal Inspection (No swelling of the upper or lower eyelids.) Throat/Mouth: Normal Inspection, Normal Lips, Normal Oropharynx, Other (No swelling of the uvula tongue or floor the mouth.) Respiratory/Chest: No Respiratory Distress, Lungs Clear, Normal Breath Sounds, No Accessory Muscle Use. No: Respiratory Distress, Rales, Rhonchi, Wheezing Cardiovascular: Normal Peripheral Pulses, Regular Rate, Rhythm, No Edema, No Murmur, No Rub Extremities: Other (Does have localized swelling to the entire dorsal aspect of his left hand with no redness or increased warmth. He reports that it is itching underneath the skin.) Neurological: Alert, Oriented, CN II-XII Intact, Normal Cognition, Normal Gait Psychiatric: Normal Affect, Normal Mood Skin Exam: Warm, Dry, Intact, Normal Color, No Rash Course - Vital Signs Last Recorded V/S: Last Vital Signs Temp 35.9 C L 11/04/20 07:14 Pulse 67 11/04/20 07:14 Resp 16 11/04/20 07:14 BP 116/69 11/04/20 07:14 Pulse Ox 96 11/04/20 07:14 - Orders/Labs/Meds Meds: Medications Discontinued Medications Generic Name Dose Route Start Last Admin Trade Name Lashonda PRN Reason Stop Dose Admin Prednisone 40 mg 11/04/20 07:31 Prednisone 20 Mg Tab PO 11/04/20 07:32 ONETIME ONE - Radiology Interpretation Free Text/Narrative:: 35-year-old male presents to the ED with swelling to the dorsal aspect of his left hand after being stung by wasp yesterday p.m. about 1500 hrs. He did take Benadryl 50 mg after being stung. This morning the hand is much more swollen than it was yesterday and still itchy. It is not red and he did not suffer any systemic signs of allergic reaction. He has to work today and therefore I am going to place him on prednisone 20 mg by mouth now and repeat 20 mg after supper tonight which which should reduce the swelling and the itch over the next few hours. Patient reassured he is not need an EpiPen at this time. Departure - Departure Time of Disposition: 07:33 Disposition: Home, Self-Care 01 Condition: Fair Clinical Impression: Wasp sting Qualifiers: Encounter type: initial encounter Injury intent: accidental or unintentional Qualified Code(s): T63.461A - Toxic effect of venom of wasps, accidental (unintentional), initial encounter - Discharge Information *PRESCRIPTION DRUG MONITORING PROGRAM REVIEWED*: Not Applicable *COPY OF PRESCRIPTION DRUG MONITORING REPORT IN PATIENT EYAD: Not Applicable Referrals: PCP,None [Primary Care Provider] - Forms: ED Department Discharge Additional Instructions: Evaluation in the emergency room today in regards to swelling of the dorsal aspect of your left hand that is a result of local reaction to a wasp sting that occurred yesterday afternoon. No evidence that it caused a systemic reaction with generalized hives, redness or shortness of breath or difficulty swallowing. You have a localized reaction to a wasp sting which there is you is the usual reaction to wasp or bee sting. Suggest treatment with prednisone tablet 20 mg this morning and repeat 20 mg after supper tonight to further reduce the swelling and improve itching. You could use Benadryl but it will also make you quite sleepy and make going to work difficult. The prednisone will not do this. They will take the prednisone but 2 to 4 hours to start to work well. Expect the swelling to be much improved over the next 24 to 36 hours. Sepsis Event Note (ED) - Evaluation Sepsis Screening Result: No Definite Risk - Focused Exam Vital Signs: Vital Signs Temp Pulse Resp BP Pulse Ox 11/04/20 07:14 35.9 C L 67 16 116/69 96
== END 2020-11-04 07:44 | disposition home or self-care (01) ==
LOC: JD.ED 07:07
DX: T63.461A Toxic effect of venom of wasps, accidental (unintentional), initial encounter (principal); K21.9 Gastro-esophageal reflux disease without esophagitis; E66.9 Obesity, unspecified; Z68.29 Body mass index [BMI] 29.0-29.9, adult; Z79.899 Other long term (current) drug therapy; Z91.030 Bee allergy status; Z88.5 Allergy status to narcotic agent; Z91.048 Other nonmedicinal substance allergy status; Z91.018 Allergy to other foods; Z72.0 Tobacco use
CPT/HCPCS: 99282; J7512

== ENCOUNTER 2020-11-05 22:48 | Emergency (ER) | payer SELFPAY ==
[2020-11-05 22:59] VITALS: BP 120/69; PULSE 75
--- NOTE | 2020-11-05 23:52 | EDM.PDOC ---
ED HPI GENERAL MEDICAL PROBLEM - General Chief Complaint: Lower Extremity Injury/Pain Stated Complaint: SWOLLEN RT ANKLE Time Seen by Provider: 11/05/20 23:34 Source of Information: Reports: Patient History Limitations: Reports: No Limitations - History of Present Illness INITIAL COMMENTS - FREE TEXT/NARRATIVE: 35-year-old male presents to the ED with painful medial aspect of his right ankle. States this occurred shortly after he put the lawnmower away after mowing his lawn tonight. He is not sure but he thinks he may have his medial ankle on a piece of wood. He states once he got in the house he peeled off a piece of skin in the area and had immediate pain and swelling in the area. I have concerns that he may have been stung by an insect. - Related Data Allergies Allergy/AdvReac Type Severity Reaction Status Date / Time bee pollen Allergy Severe Rash Verified 11/05/20 22:58 oxycodone [From OxyContin] Allergy Severe Hives Verified 11/05/20 22:58 pineapple Allergy Severe Swollen Verified 11/05/20 22:58 Tongue sulfer Allergy Severe Airway Uncoded 11/05/20 22:58 Tightness Home Meds: Home Meds Esomeprazole [NexIUM] 0 mg PO DAILY PRN 11/04/20 [History] Past Medical History - Past Health History Medical/Surgical History: Denies Medical/Surgical History HEENT History: Reports: Impaired Vision Cardiovascular History: Reports: None Respiratory History: Reports: None Gastrointestinal History: Reports: GERD Genitourinary History: Reports: None Neurological History: Reports: Concussion Psychiatric History: Reports: ADHD, Anxiety, Depression Endocrine/Metabolic History: Reports: Obesity/BMI 30+ Hematologic History: Reports: None Immunologic History: Reports: None Oncologic (Cancer) History: Reports: None Dermatologic History: Reports: None - Infectious Disease History Infectious Disease History: Reports: None - Past Surgical History HEENT Surgical History: Reports: Naso-Sinus Surgery, Oral Surgery Other HEENT Surgeries/Procedures: nose surgery Musculoskeletal Surgical History: Reports: Shoulder Surgery, Other (See Below) Other Musculoskeletal Surgeries/Procedures:: Knee Surgery Social & Family History - Family History Family Medical History: No Pertinent Family History - Tobacco Use Tobacco Use Status *Q: Unknown Ever Used Tobacco - Caffeine Use Caffeine Use: Reports: Coffee, Energy Drinks, Tea Other Caffeine Use: coffee daily, energy drinks 2 x/week - Living Situation & Occupation Living situation: Reports: , with Spouse 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) Review of Systems - Review of Systems Review Of Systems: See Below Constitutional: Reports: No Symptoms Eyes: Reports: Glasses Ears: Reports: No Symptoms Nose: Reports: No Symptoms Mouth/Throat: Reports: No Symptoms Respiratory: Reports: No Symptoms Cardiovascular: Reports: No Symptoms GI/Abdominal: Reports: No Symptoms Genitourinary: Reports: No Symptoms Musculoskeletal: Reports: Back Pain Skin: Reports: Dryness Neurological: Reports: No Symptoms Psychiatric: Reports: No Symptoms ED EXAM, GENERAL - Physical Exam Exam: See Below Exam Limited By: No Limitations General Appearance: Alert, WD/WN, Anxious (Only anxious), Other (Temperature is 36.5 degrees heart rate 75 and sinus respiratory is 18 with BP 120/69 pulse ox 98% room air) Eye Exam: Bilateral Eye: Normal Inspection, PERRL Extremities: Other (Semination limited to the right ankle. He has some erythema in a looks like an abrasion over the medial malleolus. There is surrounding swelling about the size of a silver dollar in the area. Does have pain with dorsiflexion and plantarflexion of the ankle.) Neurological: Alert, Oriented, CN II-XII Intact Psychiatric: Anxious Skin Exam: Warm (Mildly anxious), Dry, Intact, Normal Color, No Rash Course - Vital Signs Last Recorded V/S: Last Vital Signs Temp 36.5 C 11/05/20 22:56 Pulse 75 11/05/20 22:56 Resp 18 11/05/20 22:56 BP 120/69 11/05/20 22:56 Pulse Ox 98 11/05/20 22:56 - Orders/Labs/Meds Orders: Active Orders 24 hr Category Date Time Status Ankle Min 3V Rt [CR] Stat Exams 11/05/20 23:48 Taken - Radiology Interpretation Free Text/Narrative:: 35-year-old male presents to the ED for evaluation of right medial ankle pain. He states that he mowed the lawn and after putting the lawnmower away he was in the house and picked up a piece of skin from the area with immediate pain and swelling. He was stung by wasps in his own yard 2 days ago and concern was for possible wasp sting. However there appears more abraded and once he thought about it for a while he remembers that he was kicking some wooden pallets into place and likely scraped the medial aspect of his ankle on one of the wooden pallets. Three-view x-ray of the ankle to be done although clinically I do not expect a fracture. - Re-Assessments/Exams Free Text/Narrative Re-Assessment/Exam: 11/06/20 00:10 3 view of the right ankle is completely normal with no evidence of fracture or even soft tissue swelling. Reassured in this regard. He will daily cleanse the wound with soap and water and topical antibiotic and cover to keep clean with a Band-Aid. Departure - Departure Time of Disposition: 00:42 Disposition: Home, Self-Care 01 Condition: Fair Clinical Impression: Acute right ankle pain - Discharge Information *PRESCRIPTION DRUG MONITORING PROGRAM REVIEWED*: Not Applicable *COPY OF PRESCRIPTION DRUG MONITORING REPORT IN PATIENT EYAD: Not Applicable Referrals: PCP,None [Primary Care Provider] - Forms: ED Department Discharge Additional Instructions: Evaluation in the emergency room today in regards to sudden onset of right ankle pain after getting into the house after mowing the lawn. No noted injury while putting the lawnmower away. As you indicated you picked off a jose of dry skin from the right medial ankle and then an immediate pain and localized swelling. On my evaluation area of over the medial malleolus slightly erythematous with localized swelling in the area of the size of a silver dollar. Three-view x-ray of the right ankle is completely normal with no signs of any injury to the bone or underlying ligaments. Peers that the area has been scraped likely on a piece of wood. Conservative treatment with daily cleanse of the superficial abrasion and topical antibiotic ointment and bandage to keep covered. Sepsis Event Note (ED) - Evaluation Sepsis Screening Result: No Definite Risk - Focused Exam Vital Signs: Vital Signs Temp Pulse Resp BP Pulse Ox 11/05/20 22:56 36.5 C 75 18 120/69 98 - My Orders Last 24 Hours: My Active Orders 11/05/20 23:48 Ankle Min 3V Rt [CR] Stat - Assessment/Plan Last 24 Hours: My Active Orders 11/05/20 23:48 Ankle Min 3V Rt [CR] Stat
--- NOTE | 2020-11-06 07:24 | CR ---
Right ankle: 4 views centered to the right ankle were obtained. Comparison: Prior right ankle study of 04/17/10. Mild soft tissue swelling is identified. Ankle mortise is symmetric. No acute fracture, dislocation or other bony abnormality is appreciated. Impression: 1. Mild soft tissue swelling. 2. No acute bony abnormality is identified on right ankle exam. Diagnostic code #2
== END 2020-11-06 00:36 | disposition home or self-care (01) ==
LOC: JD.ED 22:48
DX: M25.571 Pain in right ankle and joints of right foot (principal); K21.9 Gastro-esophageal reflux disease without esophagitis; E66.9 Obesity, unspecified; Z68.30 Body mass index [BMI] 30.0-30.9, adult; Z91.030 Bee allergy status; Z88.5 Allergy status to narcotic agent; Z91.018 Allergy to other foods; Z88.2 Allergy status to sulfonamides; Z79.899 Other long term (current) drug therapy
CPT/HCPCS: 73610-26-RT; 73610-RT; 99282; 99283-25

== ENCOUNTER 2021-05-03 16:48 | Emergency (ER) | payer SELFPAY ==
[2021-05-03 17:08] VITALS: BP 112/74; PULSE 83
[2021-05-03] MEDS ORDERED: Morphine 4 MG/ML Syringe IVPUSH ONE (17:19)
[2021-05-03] MEDS ORDERED: Ondansetron 4 MG/2 ML SDV IVPUSH ONE (17:19)
[2021-05-03] MEDS ORDERED: Sodium Chloride 0.9% 1,000 ML IV ONE (17:19)
[2021-05-03] MEDS ORDERED: Iopamidol 755 Mg/ML 100 ML Bottle IVPUSH ONE (17:37)
[2021-05-03] MEDS ORDERED: Sodium Chloride 0.9% 10 ML Syringe FLUSH ONE (17:37)
[2021-05-03] MEDS ORDERED: Sodium Chloride 0.9% 100 ML IV SCH (17:45)
[2021-05-03] MEDS ORDERED: Alum Hydrox/Mag Hydrox/Simeth 30 ML, Lidocaine 2% 15 ML PO ONE ×2 (18:16)
== END 2021-05-03 19:30 | disposition home or self-care (01) ==
LOC: JD.ED 16:48
DX: R13.19 Other dysphagia (principal); K21.9 Gastro-esophageal reflux disease without esophagitis; E66.9 Obesity, unspecified; Z79.899 Other long term (current) drug therapy; Z91.030 Bee allergy status; Z88.5 Allergy status to narcotic agent; Z91.018 Allergy to other foods; Z72.0 Tobacco use; Z68.28 Body mass index [BMI] 28.0-28.9, adult
CPT/HCPCS: 36415; 71275; 80053; 83690; 85025; 86140; 96374; 96375; 99284; A9270; J2270; J2405; J7030; Q9967

== ENCOUNTER 2022-04-04 18:30 | Emergency (ER) | payer BC, MEDICAID ==
[2022-04-04 18:50] VITALS: BP 145/96; PULSE 82
== END 2022-04-04 21:12 | disposition home or self-care (01) ==
LOC: JD.ED 18:30
DX: T18.9XXA Foreign body of alimentary tract, part unspecified, initial encounter (principal); R07.0 Pain in throat; K21.9 Gastro-esophageal reflux disease without esophagitis; E66.9 Obesity, unspecified; Z91.018 Allergy to other foods; Z79.899 Other long term (current) drug therapy; Z91.030 Bee allergy status; Z88.6 Allergy status to analgesic agent; Z88.2 Allergy status to sulfonamides
CPT/HCPCS: 70360; 70360-26; 71045; 71045-26; 99283

== ENCOUNTER 2022-04-20 07:34 | Emergency (ER) | payer MEDICAID ==
[2022-04-20] MEDS ORDERED: Ondansetron 4 MG/2 ML SDV IVPUSH ONE (08:13)
[2022-04-20] MEDS ORDERED: Ketorolac 30 MG/ML SDV IVPUSH STA (08:13)
[2022-04-20] MEDS ORDERED: HYDROmorphone 1 MG/ML Syringe IVPUSH ONE (08:13)
[2022-04-20] MEDS ORDERED: Tamsulosin 0.4 MG Cap.ER PO ONE (08:13)
[2022-04-20] MEDS ORDERED: Sodium Chloride 0.9% 1,000 ML IV SCH (08:15)
[2022-04-20 09:57] VITALS: BP 103/80; PULSE 88
== END 2022-04-20 09:57 | disposition home or self-care (01) ==
LOC: JD.ED 07:34
DX: N13.2 Hydronephrosis with renal and ureteral calculous obstruction (principal); K21.9 Gastro-esophageal reflux disease without esophagitis; Z87.891 Personal history of nicotine dependence; Z91.018 Allergy to other foods; Z88.2 Allergy status to sulfonamides; Z91.030 Bee allergy status; Z88.5 Allergy status to narcotic agent
CPT/HCPCS: 74176; 81001; 96361; 96374; 96375; 99284; A9270; J1170; J1885; J2405; J7030

== ENCOUNTER 2022-05-19 23:20 | Emergency (ER) | payer MEDICAID ==
[2022-05-19 23:35] VITALS: BP 134/85; PULSE 88
[2022-05-20] MEDS ORDERED: Ketorolac 60 MG/2 ML SDV IM ONE (00:05)
== END 2022-05-20 00:57 | disposition home or self-care (01) ==
LOC: JD.ED 23:20
DX: S30.0XXA Contusion of lower back and pelvis, initial encounter (principal); Z91.018 Allergy to other foods; Z91.030 Bee allergy status; Z88.8 Allergy status to other drugs, medicaments and biological substances; Z88.5 Allergy status to narcotic agent; W00.0XXA Fall on same level due to ice and snow, initial encounter
CPT/HCPCS: 72100; 72220; 96372; 99283; J1885

== ENCOUNTER 2023-01-23 11:42 | Emergency (ER) | payer SELFPAY ==
[2023-01-23] MEDS ORDERED: Ketorolac 30 MG/ML SDV IVPUSH ONE (12:23)
[2023-01-23] MEDS ORDERED: Ondansetron 4 MG/2 ML SDV IVPUSH ONE (12:23)
[2023-01-23] MEDS ORDERED: Sodium Chloride 0.9% 1,000 ML IV SCH (12:30)
[2023-01-23 13:32] LABS: BASOPHILS ABSOLUTE AUTO 0.1 K/mm3 (0.0-0.2); BASOPHILS PERCENT AUTO 0.7 % (0.0-1.0); EOSINOPHILS ABSOLUTE AUTO 0.2 K/mm3 (0.0-0.4); EOSINOPHILS PERCENT AUTO 1.8 % (0.0-6.0); HEMATOCRIT 48.9 % (42.0-52.0); HEMOGLOBIN 16.9 gm/dl (14.0-18.0); IMMATURE GRAN ABSOLUTE AUTO 0.03 K/mm3 (0.00-0.05); IMMATURE GRAN PERCENT AUTO 0.3 % (0.0-0.4); LYMPHOCYTES ABSOLUTE AUTO 1.7 K/mm3 (1.0-4.8); LYMPHOCYTES PERCENT AUTO 16.3 % (24.0-44.0); MEAN CORPUSCULAR HEMOGLOBIN 30.3 pg (28.0-32.0); MEAN CORPUSCULAR HGB CONC 34.6 g/dl (32.0-36.0); MEAN CORPUSCULAR VOLUME 87.6 fl (83.0-99.0); MONOCYTES ABSOLUTE AUTO 0.7 K/mm3 (0.0-0.8); MONOCYTES PERCENT AUTO 6.6 % (0.0-8.0); NEUTROPHILS ABSOLUTE AUTO 7.7 K/mm3 (1.8-7.7); NEUTROPHILS PERCENT AUTO 74.3 % (41.0-71.0); PLATELET COUNT,PLT 347 K/mm3 (150-400); RED BLOOD CELL COUNT 5.58 M/mm3 (4.52-5.90); WHITE BLOOD CELL COUNT,WBC 10.38 K/mm3 (3.9-11.3)
[2023-01-23 14:10] LABS: C. TRACHOMATIS BY PCR NOT DETECTED; N. GONORRHOEAE BY PCR NOT DETECTED
[2023-01-23 14:13] LABS: ALBUMIN 4.1 g/dl (3.4-5.0); ANION GAP 15.8 (5-15); BILIRUBIN TOTAL 0.7 mg/dL (0.2-1.0); CALCIUM 9.4 mg/dL (8.5-10.1); CREATININE 1.1 mg/dL (0.7-1.3); EST CRCL DRUG DOSING (CG) 99.94 mL/min; POTASSIUM,K 3.8 mEq/L (3.5-5.1); PROTEIN TOTAL,TP 8.1 g/dl (6.4-8.2)
[2023-01-23 15:00] LABS: APPEARANCE,URINE CLEAR (Clear); BILIRUBIN,URINE NEGATIVE (Negative); COLOR,URINE YELLOW (Yellow); GLUCOSE,URINE NEGATIVE (Negative); KETONES,URINE NEGATIVE (Negative); LEUKOCYTE ESTERASE,URINE NEGATIVE (Negative); NITRITE,URINE NEGATIVE (Negative); OCCULT BLOOD,URINE 2+ (Negative); PH,URINE 5.5 (5.0-8.0); PROTEIN,URINE TRACE (Negative); UROBILINOGEN,URINE 0.2 (0.2-1.0)
[2023-01-23 15:09] LABS: BACTERIA,URINE FEW /hpf (FEW); MUCUS,URINE MODERATE /hpf (FEW); RBC,URINE 20-30 /hpf (0-5); SQUAMOUS EPITHELIAL CELLS,UR 0-5 /hpf (0-5); WBC,URINE 0-5 /hpf (0-5)
[2023-01-23] MEDS ORDERED: Tamsulosin 0.4 MG Cap.ER PO ONE (15:13)
[2023-01-23 15:51] VITALS: BP 98/55; PULSE 56
== END 2023-01-23 15:48 | disposition home or self-care (01) ==
LOC: JD.ED 11:42
DX: N13.2 Hydronephrosis with renal and ureteral calculous obstruction (principal); K21.9 Gastro-esophageal reflux disease without esophagitis; Z91.018 Allergy to other foods; Z88.2 Allergy status to sulfonamides; Z88.5 Allergy status to narcotic agent; Z91.038 Other insect allergy status; Z79.899 Other long term (current) drug therapy
CPT/HCPCS: 36415; 51798; 74176; 80053; 81001; 85025; 87491; 87591; 96361; 96374; 96375; 99284; A9270; J1885; J2405; J7030

== ENCOUNTER 2023-07-10 04:18 | Emergency (ER) | payer SELFPAY ==
[2023-07-10] MEDS: Ketorolac 15 MG/ML SDV IVPUSH ONE (05:09)
[2023-07-10] MEDS: Sodium Chloride 0.9% 1,000 ML IV ONE (05:09)
[2023-07-10] MEDS: Aluminum Hydroxide/Magnesium Hydroxide/Simethicone Susp 30 ML Cup PO ONE (05:18)
[2023-07-10] MEDS: Famotidine 20 MG/2 ML SDV IVPUSH ONE (05:18)
[2023-07-10 05:30] LABS: BASOPHILS ABSOLUTE AUTO 0.1 K/mm3 (0.0-0.2); BASOPHILS PERCENT AUTO 0.7 % (0.0-1.0); EOSINOPHILS ABSOLUTE AUTO 0.3 K/mm3 (0.0-0.4); EOSINOPHILS PERCENT AUTO 2.6 % (0.0-6.0); HEMATOCRIT 43.8 % (42.0-52.0); HEMOGLOBIN 15.1 gm/dl (14.0-18.0); IMMATURE GRAN ABSOLUTE AUTO 0.02 K/mm3 (0.00-0.05); IMMATURE GRAN PERCENT AUTO 0.2 % (0.0-0.4); LYMPHOCYTES ABSOLUTE AUTO 3.7 K/mm3 (1.0-4.8); MEAN CORPUSCULAR HEMOGLOBIN 29.6 pg (28.0-32.0); MEAN CORPUSCULAR HGB CONC 34.5 g/dl (32.0-36.0); MEAN CORPUSCULAR VOLUME 85.9 fl (83.0-99.0); MEAN PLATELET VOLUME 9.2 fl (9.4-12.4); MONOCYTES ABSOLUTE AUTO 0.9 K/mm3 (0.0-0.8); MONOCYTES PERCENT AUTO 9.2 % (0.0-8.0); NEUTROPHILS ABSOLUTE AUTO 4.6 K/mm3 (1.8-7.7); NEUTROPHILS PERCENT AUTO 48.3 % (41.0-71.0); PLATELET COUNT,PLT 326 K/mm3 (150-400); WHITE BLOOD CELL COUNT,WBC 9.46 K/mm3 (3.9-11.3)
[2023-07-10 05:37] LABS: A/G RATIO 1.1 (1-2); ALBUMIN 3.7 g/dl (3.4-5.0); ANION GAP 16.8 (5-15); BILIRUBIN TOTAL 0.3 mg/dL (0.2-1.0); CALCIUM 8.8 mg/dL (8.5-10.1); CREATININE 1.4 mg/dL (0.7-1.3); EST CRCL DRUG DOSING (CG) 78.52 mL/min
[2023-07-10 05:39] LABS: POTASSIUM,K 3.8 mEq/L (3.5-5.1)
[2023-07-10 06:14] LABS: APPEARANCE,URINE CLEAR (Clear); BILIRUBIN,URINE NEGATIVE (Negative); COLOR,URINE YELLOW (Yellow); GLUCOSE,URINE NEGATIVE (Negative); KETONES,URINE NEGATIVE (Negative); LEUKOCYTE ESTERASE,URINE NEGATIVE (Negative); NITRITE,URINE NEGATIVE (Negative); OCCULT BLOOD,URINE NEGATIVE (Negative); PH,URINE 5.5 (5.0-8.0); PROTEIN,URINE NEGATIVE (Negative); UROBILINOGEN,URINE 0.2 (0.2-1.0)
[2023-07-10 06:46] VITALS: BP 121/69; PULSE 71
== END 2023-07-10 06:45 | disposition home or self-care (01) ==
LOC: JD.ED 04:18
DX: S39.012A Strain of muscle, fascia and tendon of lower back, initial encounter (principal); E66.9 Obesity, unspecified; Z88.2 Allergy status to sulfonamides; Z91.018 Allergy to other foods; Z91.041 Radiographic dye allergy status; Z91.030 Bee allergy status; Z88.8 Allergy status to other drugs, medicaments and biological substances; Z79.899 Other long term (current) drug therapy; Z68.31 Body mass index [BMI] 31.0-31.9, adult; X58.XXXA Exposure to other specified factors, initial encounter
CPT/HCPCS: 36415; 71046; 74176; 80053; 81003; 85025; 96361; 96374; 96375; 99284; A9270; J1885; J3490; J7030

== ENCOUNTER 2023-11-02 21:15 | Emergency (ER) | payer SELFPAY ==
[2023-11-02] MEDS ORDERED: Sodium Chloride 0.9% 10 ML Syringe FLUSH PRN (21:32)
[2023-11-02 22:05] LABS: BASOPHILS ABSOLUTE AUTO 0.1 K/mm3 (0.0-0.2); BASOPHILS PERCENT AUTO 0.6 % (0.0-1.0); EOSINOPHILS ABSOLUTE AUTO 0.3 K/mm3 (0.0-0.4); EOSINOPHILS PERCENT AUTO 3.2 % (0.0-6.0); HEMATOCRIT 48.1 % (42.0-52.0); HEMOGLOBIN 16.3 gm/dl (14.0-18.0); IMMATURE GRAN ABSOLUTE AUTO 0.02 K/mm3 (0.00-0.05); IMMATURE GRAN PERCENT AUTO 0.2 % (0.0-0.4); LYMPHOCYTES ABSOLUTE AUTO 3.1 K/mm3 (1.0-4.8); LYMPHOCYTES PERCENT AUTO 32.4 % (24.0-44.0); MEAN CORPUSCULAR HEMOGLOBIN 29.5 pg (28.0-32.0); MEAN CORPUSCULAR HGB CONC 33.9 g/dl (32.0-36.0); MEAN PLATELET VOLUME 9.2 fl (9.4-12.4); MONOCYTES ABSOLUTE AUTO 0.9 K/mm3 (0.0-0.8); NEUTROPHILS ABSOLUTE AUTO 5.2 K/mm3 (1.8-7.7); NEUTROPHILS PERCENT AUTO 54.6 % (41.0-71.0); PLATELET COUNT,PLT 333 K/mm3 (150-400); RED BLOOD CELL COUNT 5.53 M/mm3 (4.52-5.90); WHITE BLOOD CELL COUNT,WBC 9.54 K/mm3 (3.9-11.3)
[2023-11-02 22:06] LABS: APPEARANCE,URINE CLEAR (Clear); BILIRUBIN,URINE NEGATIVE (Negative); COLOR,URINE YELLOW (Yellow); GLUCOSE,URINE NEGATIVE (Negative); KETONES,URINE NEGATIVE (Negative); LEUKOCYTE ESTERASE,URINE NEGATIVE (Negative); NITRITE,URINE NEGATIVE (Negative); OCCULT BLOOD,URINE NEGATIVE (Negative); PH,URINE 5.5 (5.0-8.0); PROTEIN,URINE NEGATIVE (Negative); UROBILINOGEN,URINE 0.2 (0.2-1.0)
[2023-11-02] MEDS: Ketorolac 30 MG/ML SDV IVPUSH ONE (22:24)
[2023-11-02] MEDS: Triamcinolone Acetonide 40 MG/ML 1 ML SDV IM ONE (22:24)
[2023-11-02] MEDS: Orphenadrine 60 MG/2 ML Inj IV ONE (22:24)
[2023-11-02 22:33] LABS: ALANINE AMINOTRANSFERASE,ALT 54 U/L (16-63); ALKALINE PHOSPHATASE 113 U/L (46-116); ANION GAP 14.9 (5-15); ASPARTATE AMNIOTRANSFERASE,AST 26 U/L (15-37); BILIRUBIN TOTAL 0.4 mg/dL (0.2-1.0); BLOOD UREA NITROGEN,BUN 13 mg/dL (7-18); BUN/CREATININE RATIO 11.8 (14-18); C-REACTIVE PROTEIN 0.68 mg/dL (<0.30); CALCIUM 9.3 mg/dL (8.5-10.1); CARBON DIOXIDE,CO2 26 mEq/L (21-32); CHLORIDE,CL 106 mEq/L (98-107); CREATININE 1.1 mg/dL (0.7-1.3); ESTIMATED GFR 88 mL/min (>60); GLUCOSE RANDOM 101 mg/dL (70-99); MAGNESIUM 1.8 mg/dL (1.8-2.4); POTASSIUM,K 3.9 mEq/L (3.5-5.1); PROTEIN TOTAL,TP 7.9 g/dl (6.4-8.2); SODIUM,NA 143 mEq/L (136-145)
[2023-11-03 00:07] VITALS: BP 135/85; PULSE 88
== END 2023-11-03 00:07 | disposition home or self-care (01) ==
LOC: JD.ED 21:15
DX: M54.42 Lumbago with sciatica, left side (principal); E66.9 Obesity, unspecified; Z88.8 Allergy status to other drugs, medicaments and biological substances; Z91.040 Latex allergy status; Z91.030 Bee allergy status; Z79.899 Other long term (current) drug therapy
CPT/HCPCS: 36415; 72131; 72131-26; 80053; 81003; 83735; 85025; 86140; 96372; 96374; 96375; 99284; 99284-25; J1885; J2360; J3301